=== PATIENT | female | born 2005 | race Caucasian/White ===

== ENCOUNTER 2024-11-09 20:59 | Emergency (ER) | payer BC, MEDICAID ==
[~2024-11-09] VITALS: Ht 160 cm; Wt 61.0 kg
[2024-11-09 22:18] LABS: LEUKOCYTE ESTERASE ,URINE MODERATE (Neg); NITRITES, URINE NEGATIVE (Neg); OCCULT BLOOD,URINE LARGE (Neg); URINE HCG NEGATIVE (NEG)
[2024-11-09 22:27] LABS: UA COLLECTION TYPE CLN CATCH MIDSTREAM
[2024-11-09 22:32] LABS: SQUAMOUS EPITHELIAL CELL,UR FEW /LPF (FEW)
--- NOTE | 2024-11-09 23:16 | Physician Documentation ---
History of Present Illness ~ Chief Complaint: Urinary Symptoms Stated Complaint: UTI Time Seen by MD: 23:15 HPI 19-year-old female presenting with urinary symptoms She tells me that she is having dysuria, hematuria, and some lower abdominal pain starting today. She was worried she may have a urine infection. No upper abdominal pain or flank pain. No fevers or chills. No nausea or vomiting. No other associated symptoms. No allergies to antibiotics Medication Reconciliation Allergies: Coded Allergies: No Known Allergies (Unverified , 01/31/17) Scheduled Phenazopyridine HCl (Pyridium), 1 TAB PO Q8H Sulfamethoxazole/Trimethoprim (Bactrim Ds Tablet), 1 TAB PO Q12H Past Medical History Past Surgical History: no surgical history Alcohol Use: None Drug Use: none Lives with: Family Lives In: Home Occupation: student, child Review of Systems Genitourinary: Reports: burning, hematuria Physical Exam Vital Signs: Temperature: 98.1, Heart Rate: 93, Respiratory Rate: 16, BP: 113/70, Pulse Oximetry: 97, Weight: 61.000 Oxygen Flow Rate: 0 Physical Exam General: This is a pleasant and healthy appearing young female HEENT: Atraumatic, oropharynx is moist Heart: Regular rate, normal-appearing peripheral perfusion Lungs: normal work of breathing, normal oxygen saturation on room air Abdomen: Soft, nondistended, mild discomfort on palpation in the suprapubic region only, otherwise nontender, no rebound or guarding Neuro: Alert and oriented Psychiatric: Calm and cooperative with exam Progress Results/Orders Results/Orders Orders - FACUNDO SERRANO MD Cult Urine + [address] (11/09/24 22:34) Phenazopyridine Tablet (Pyridium Tablet) (11/09/24 23:25) Sulfamethox/Trimetho. Ds Tab (Septra Ds (11/09/24 23:25) Completed Orders - FACUNDO SERRANO MD Hcg, Ur Ql (11/09/24 21:10) Ua W/Microscopic, Cult If Ind (11/09/24 21:09) Medications Received in ER Medications (Trade) Dose Ordered Sig/Demetris Route PRN Reason Start Time Stop Time Status Last Admin Dose Admin (Pyridium tablet) 200 mg ONCE ONCE PO 11/09/24 23:25 11/09/24 23:26 DC 11/09/24 23:32 200 MG (Septra DS tab) 1 tab ONCE ONCE PO 11/09/24 23:25 11/09/24 23:26 DC 11/09/24 23:32 1 TAB Vital Signs 11/09/24 11/09/24 21:05 23:35 Temp 98.1 98.6 Pulse 93 90 Resp 16 18 B/P (MAP) 113/70 114/72 Pulse Ox 97 99 O2 Flow Rate 0 Laboratory Tests Test 11/09/24 21:09 Urine Specimen Description Cln catch midstream Urine Color [place] Urine Clarity Slightly cloudy Urine pH 7.5 Urine Specific [place] 1.010 Urine Protein Trace Urine Glucose (UA) Negative Urine Ketones Negative Urine Occult Blood Large H Urine Nitrite Negative Urine Bilirubin Negative Urine Urobilinogen 0.2 Urine Leukocyte Esterase Moderate H Urine RBC 3-10 Urine WBC 5-10 H Urine Squamous Epithelial Cells Few Urine Bacteria 2+ Urine Culture Indicated Indicated Volume Urine Centrifuged 10 ml Urine HCG, Qualitative Negative Urine Comment Microbiology Date/Time Source Procedure Growth Status 11/09/24 22:34 Urine Clean Catch Midstream Urine Culture - Preliminary Culture received. Resulted Medical Decision Making Additional Comment The patient presents with urinary symptoms, which seem classic for UTI. She has no symptoms or findings on exam to suggest pyelonephritis or other more dangerous process. I doubt intra-abdominal inflammatory process like appendicitis or kidney stone. Urinalysis consistent with UTI. She will be treated with Pyridium and antibiotics, return precautions given. Departure Time of Disposition: 23:23 Disposition: HOME / SELF CARE / HOMELESS Impression: Primary Impression: Acute urinary tract infection Condition: Stable Discharge Instructions: Urinary Tract Infection, Adult Referrals: NO PRIMARY CARE PROVIDER (PCP) Prescriptions Phenazopyridine HCl (Pyridium) 200 Mg Tablet 1 TAB PO Q8H for urinary discomfort for 2 Days, #6 TAB 0 Refills Prov: FACUNDO SERRANO MD 11/09/24 Sulfamethoxazole/Trimethoprim (Bactrim Ds Tablet) 800 Mg-160 Mg Tablet 1 TAB PO Q12H for 3 Days, #6 TAB Prov: FACUNDO SERRANO MD 11/09/24 Education Educated: Patient Educated regarding: diagnosis, treatment Signature Scribe Signature: na Attestation: FACUNDO Gasca MD Nov 09, 2024 23:16
[2024-11-09] MEDS ORDERED: PHEN-716 PO (23:25)
[2024-11-09] MEDS ORDERED: SULF1TAB49 PO (23:25)
[2024-11-09] MEDS: sulfamethoxazole/trimethoprim DS (800/160mg) tablet PO ONE (23:32)
[2024-11-09] MEDS: phenazopyridine 100mg tablet PO ONE (23:32)
[2024-11-09 23:35] VITALS: BP 114/72; PULSE 90; RESP 18; TEMP 98.6; O2SAT 99
== END 2024-11-09 23:36 | disposition home or self-care (01) ==
LOC: ER 20:59
DX: N39.0 Urinary tract infection, site not specified (principal); Z79.899 Other long term (current) drug therapy
CPT/HCPCS: 81001; 81025; 87088; 99283